=== PATIENT | male | born 1995 | race African-American/Black ===

== ENCOUNTER 2016-05-08 18:57 | Emergency (ER) | payer OTHER ==
[~2016-05-08] VITALS: Ht 195.6 cm; Wt 91.5 kg
[2016-05-08 19:01] VITALS: Ht 195.6 cm; Wt 91.5 kg
[2016-05-08] MEDS ORDERED: CEPH500C PO (19:44)
[2016-05-08] MEDS ORDERED: CEPHALEXIN 500MG HOME PACK 1 EA BTL PO ONE (19:45)
--- NOTE | 2016-05-08 19:52 | EMERGENCY ROOM VISIT NOTE ---
ED Visit Note First contact with patient: 19:04 CHIEF COMPLAINT: Painful mass on the left lateral thigh HISTORY OF PRESENT ILLNESS: This 50-year-old Afro-[place] male patient noticed a hard tender area on his left lateral thigh about 5 days ago. It is slowly getting larger, more painful and tender. Today it started draining. He was pushing on it and it continued to drain. He became concerned and came to the ED. No fever, chills, nausea, vomiting, or loss of appetite. There was no injury to the area preceding the infection. No treatment yet. Pain is 8/ 10. States the pain radiates down the outside of his leg. No prior history of similar episode. REVIEW OF SYSTEMS: REVIEW OF SYSTEM: HEENT: No dizziness, visual problems, hearing loss, or tinnitus. There is no difficulty swallowing and no oral lesions are present. PULMONARY: No cough, shortness of breath, sputum production or hemoptysis. CARDIOVASCULAR: No chest pain, palpitations, shortness of breath or peripheral edema. GASTROINTESTINAL: No diarrhea, constipation, nausea, vomiting, or abdominal pain. GENITOURINARY: No dysuria, frequency, urgency or nocturia. NEUROLOGIC: No weakness, muscle tenderness, epilepsy or history of neurological problems. MUSCULOSKELETAL: No history of joint tenderness/swelling. No history of arthritis or arthralgias. SKIN: No rashes. PSYCHIATRIC: No history of depression or mental illness. ENDOCRINE: No history of diabetes, thyroid disorders, or abnormal hair growth. PMH: Supplemental sheet was reviewed and signed. Previous surgeries: None Medical History: Benign Current medications: None Allergies: NKDA Family history: Unremarkable. Parents are living. Last tetanus: Within 10 years SOCIAL HISTORY: Employed. No tobacco use, no EtOH use. PHYSICAL EXAM: Vital Signs: Reviewed and filed in patient's chart. Temp 37.6. General: Well-developed, well-nourished, young -[place] male, in obvious discomfort. No acute distress. Laying on a bed. Alert and oriented. Skin: Warm and dry with good turgor. No rashes. No ecchymosis or erythema. The patient is not diaphoretic. There is an indurated area on the proximal left lateral thigh which measures about 6 cm in diameter. It is firm and there is pointing with drainage. Pulses expressible. There is no red zone of inflammation around it or lymphangitis. It is mildly warm to touch. Musculoskeletal: Patient has intact motor function to his left hip, knee, and ankle. Neurologic: Gross sensation is intact across the left leg by soft touch. EMERGENCY DEPARTMENT COURSE: Informed oral consent was obtained for incision and drainage. Area was prepped with Betadine and draped with a sterile towel. Wound was anesthetized using 7ml 1% plain lidocaine in a direct infiltration. # 11 blade was used to sharply incised the abscess. Copious purulent material was expressed from the wound. The abscess was probed using a needle cdl flatbed truck driver to break up interior loculations. Wound was irrigated copiously using Betadine and normal sterile saline mixed, under jet spray lavage. It was then packed using sterile ribbon gauze. Outer dressing was placed. DIAGNOSIS: Large Skin Abscess of the left lateral thigh DISCHARGE INSTRUCTIONS & TREATMENT: Patient was educated regarding today's findings. Conservative care measures were discussed. Change the dressing if it becomes soiled or blood-stained and remove the drain in about 48 hours. Prescription was given for Keflex, 500 mg 4 times a day for 7 days. Return if any problems such as fever or increasing pain develop. See a general surgeon if an abscess re-occurs in the same area in the future for consideration of excision of the cyst. Skin abscess handout was provided. Warm moist compresses to the area several times a day to promote drainage. Current/Historical Medications Scheduled Cephalexin Monohydrate (Keflex), 500 MG PO QID Allergies Coded Allergies: No Known Allergies (Unverified , 05/08/16) Vital Signs Date Time Temp Pulse Resp B/P Pulse Ox O2 Delivery O2 Flow Rate FiO2 05/08/16 19:01 37.6 90 20 132/76 100 Room Air Medications Administered Medications (Trade) Dose Ordered Sig/Anabel Route Start Time Stop Time Status Last Admin Dose Admin Cephalexin Monohydrate (Keflex 500MG Home Pack) 1 homepack NOW ONCE PO 05/08/16 19:45 05/08/16 19:46 DC 05/08/16 19:44 1 HOMEPACK Departure Information Prescriptions Cephalexin Monohydrate (Keflex) 500 Mg Cap 500 MG PO QID, #24 CAP Prov: Eugenio Devlin,P.A. 05/08/16 Referrals No Doctor, Assigned (PCP) Patient Instructions [facility]
[2016-05-08 20:23] VITALS: BP 127/74; PULSE 84; TEMP 37.6; O2SAT 100
== END 2016-05-08 20:24 | disposition home or self-care (01) ==
LOC: EDBD 18:59 → C.EDB 18:59 → C.EDD 20:24
DX: L02.416 Cutaneous abscess of left lower limb (principal)

== ENCOUNTER 2016-05-10 15:52 | Emergency (ER) | payer OTHER ==
[~2016-05-10] VITALS: Ht 195.6 cm; Wt 86.8 kg
[~2016-05-10 15:52] MED LIST: CEPH500C PO
[2016-05-10 15:55] VITALS: TEMP 37.3; Ht 195.6 cm; Wt 86.8 kg
--- NOTE | 2016-05-10 16:41 | EMERGENCY ROOM VISIT NOTE ---
History First contact with patient: 16:24 Chief Complaint: WOUND RECHECK Stated Complaint: WOUND RECHECK Nursing Triage Summary: Pt presents with wound recheck to left thigh, seen here 2 days ago. States packing fell out. "Without the packing in it, it feels better. There is still pus coming out though so I was concerned." History of Present Illness The patient is a 20 year old male who presents to the Emergency Room via private vehicle with complaints of "Wound recheck". The patient states that he was here roughly 2 days ago for an abscess on his left thigh/hip. He states that the packing fell out but it seems to be much better. He states there was still some pus coming out therefore he returned because he was concerned. He also states he does not have a family doctor therefore he was instructed to return here for recheck in 48 hours. He states that there is minimal pus coming out that it looks much better than I did 2 days ago. He has been taking the Keflex as he was prescribed. He denies minimal pain in the region. He denies any fevers or chills. Review of Systems A complete 6-point Review of Systems was discussed with the patient, with pertinent positives and negatives listed in the History of Present Illness. All remaining Review of Systems questions can be considered negative unless otherwise specified. Past Medical/Surgical History Unremarkable Family History Unremarkable Social History Smoking Status: Never Smoker Social History: Patient denies alcohol and tobacco use. Current/Historical Medications Scheduled Cephalexin Monohydrate (Keflex), 500 MG PO QID Allergies Coded Allergies: No Known Allergies (Unverified , 05/10/16) Physical Exam Vital Signs Date Time Temp Pulse Resp B/P Pulse Ox O2 Delivery O2 Flow Rate FiO2 05/10/16 16:58 70 16 116/81 100 05/10/16 15:55 37.3 70 20 127/81 100 Room Air Physical Exam VITAL SIGNS - Vital signs and nursing notes were reviewed. Patient is afebrile , normotensive, non-tachycardic and is saturating well on room air 100%. GENERAL -20-year-old male appearing his stated age who is in no acute distress. Communicates well with provider and answers questions appropriately. SKIN - there is evidence of healing abscess drainage on the patient's left lateral thigh/hip. There is slight induration, with a 1 cm x 1 cm purulent draining center. There is surrounding indurated region without fluctuance. There is no streaking. Minimal tenderness to palpation in this region. Medical Decision & Procedures Medical Decision Patient was seen and evaluated as above. Previous visit was reviewed. Patient presents with request for wound recheck of his draining abscess that was incised 2 days ago. The patient was placed on Keflex, and he notes that he is feeling much better but notes minimal drainage in the center. The packing did fall out within the past 2 days. On inspection appears that this is healing quite well, however the central region does have a minimal amount of purulent discharge. Digital pressure was applied, and a small amount was expressed. This region was then thoroughly irrigated under pressure with normal saline. Patient tolerated this very well. It appears that her wound is healing very well. This was dressed with a small bacitracin dressing and covered to protect it. The patient was instructed to return in 48 hours for recheck if persistent or worsening symptoms. He is to follow-up with his family doctor, and notes that he does not have one but does have insurance therefore I told him that he is to call the back of his insurance card number to ask which providers in the area participate with his insurance. He seemed very happy with this. He was discharged home with instructions for close follow-up as well as worrisome symptoms in which to return. He was educated upon management, and was discharged home in good condition. In evaluation treatment this patient following differential diagnoses were entertained: Cellulitis, abscess, healing infection, among others. Impression Primary Impression: Encounter for wound re-check Additional Impressions: Cellulitis Healing abscess/cellulitis Departure Information Dispostion Home / Self-Care Condition GOOD Referrals No Doctor, Assigned (PCP) Patient Instructions My [facility] Additional Instructions You were seen in the emergency Department for a wound recheck. It appears that your wound is healing well, I did drain the remainder of the pus and thoroughly cleanse it with saline. I have applied bacitracin. Please do this once daily when you change the bandage. Please call the back of your insurance card to request primary care doctors in your area that accept your insurance. It is recommended you return to the emergency department in 48 hours for recheck of the wound if it is the same or worsening. If it is continue to improve please follow up with family doctor. Please return to emergency department with any new/concerning symptoms. If you develop any fevers, chills or worsening symptoms please certainly return. Problem Qualifiers
[2016-05-10 16:58] VITALS: BP 116/81; PULSE 70; O2SAT 100
== END 2016-05-10 16:59 | disposition home or self-care (01) ==
LOC: C.EDB 15:53 → C.EDD 16:59
DX: Z48.817 Encounter for surgical aftercare following surgery on the skin and subcutaneous tissue (principal); S71.102A Unspecified open wound, left thigh, initial encounter; L03.116 Cellulitis of left lower limb; X58.XXXA Exposure to other specified factors, initial encounter